=== PATIENT | female | born 1965 | race Caucasian/White ===

== ENCOUNTER 2016-03-05 08:35 | Emergency (ER) | payer OTHER, BC ==
[2016-03-05] MEDS ORDERED: KETOROLAC 30 MG/ML VIAL (J1885) As Ordered ONE (09:30)
--- NOTE | 2016-03-05 10:55 | EDDOCDS ---
[facility] Name: Michaela Marin Age: 50 yrs Sex: Female : 1965 Arrival Date: 03/05/2016 Time: 08:35 Bed PD Private MD: No Pcp Diagnosis: Low back pain Presentation: 03/05 08:56 Presenting complaint: Patient states: chronic low back pain and bilateral hip pain bcj worse today than normal. states incontinent today. no loss of function. denies recent injury/fall. Adult Sepsis Screening: The patient does not have new or worsening altered mentation. Patient's respiratory rate is less than 22. Systolic blood pressure is greater than 100. Patient has a qSOFA score of 0- Negative Sepsis Screen. Suicide/Homicide risk assessment- the patient denies having any suicidal and/or homicidal ideations and does not present with any other emotional, behavioral or mental health complaints. Status: Patient is not a director career services or dependent. Transition of care: patient was not received from another setting of care. 08:56 Acuity: JOSELYN Level 4 bcj 08:56 Method Of Arrival: Walkin/Carried/Asstd bcj Triage Assessment: 08:58 General: Appears in no apparent distress, comfortable, Behavior is cooperative. Pain: bcj Location: back Pain currently is 8 out of 10 on a pain scale. HIV screening NA for this visit Offered previously. 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 control pills daily - PMHx: Chronic Low Back Pain; - PSHx: Breast Augmentation; - Social history: Smoking status: Patient states was never smoker of tobacco. No barriers to communication noted, The patient speaks fluent Sami, Speaks appropriately for age. - Family history: Not pertinent. - : The pt / caregiver states he / she is not on anticoagulants. Home medication list is obtained from the patient. - Exposure Risk Screening:: None identified. Screenin:53 Screening information is obtained from the patient. Fall risk: No risks identified. bcj Assistance ADL's: requires no assistance with activities of daily living. Abuse/DV Screen: The patient / caregiver reports he/she is: not in a situation that causes fear, pain or injury. Nutritional screening: No deficits noted. Advance Directives: Currently, there is no health care proxy. home support is adequate. Assessment: 10:53 General: Appears in no apparent distress, comfortable, Behavior is cooperative. Pain: bcj Location: back Pain currently is 3 out of 10 on a pain scale. Derm: Skin is pink, warm & dry. Vital Signs: 08:37 BP 116 / 60; Pulse 72; Resp 16; Temp 97.8(O); Pulse Ox 100% ; Weight 60.78 kg; Height 5 cmb ft. 1 in. (154.94 cm); Pain 810; 08:37 Body Mass Index 25.32 (60.78 kg, 154.94 cm) cmb Vitals: 08:37 Log In Time: March 05, 2016 at 08:33. cmb ED Course: 08:36 Patient visited by Emi Posadas. cmb 08:36 Patient moved to Waiting cmb 08:37 No Pcp is Private Physician. cmb 08:38 Patient moved to Pre RCE cmb 08:57 Triage Initiated bcj 08:59 Patient visited by Олег Myers RN. bcj 09:00 Patient moved to Triage 1 bcj 09:01 Jignesh Scherer PA-C is PHCP. ar2 09:01 Ernestina Zayas MD is Attending Physician. ar2 09:01 Patient visited by Jignesh Scherer PA-C. ar2 09:38 Patient moved to PD bcj 10:31 Олег Weber is Referral Physician. ar2 10:31 [facility] is Referral Physician. ar2 10:31 Cathy Elizabeth MD is Referral Physician. ar2 10:43 [facility] Payment Agreement was scanned into [employer] and attached to record. lg 10:53 No apparent distress. Resting quietly. Awaiting disposition. bcj 10:53 The patient / caregiver is instructed regarding the plan of care and ED course. bcj 10:53 No IV's were initiated during this patient's visit. No procedures done that require bcj assistance. 10:55 Patient visited by Олег Myers RN. bcj Administered Medications: 09:40 Drug: ketorolac 60 mg [ketorolac 30 mg/mL (1 mL) injection solution (2 mL)] Route: IM; bcj Site: right gluteus; Order Results: Lab Order: UA; SPEC'M 03/05/16 09:41 Test: APPEARANCE, URINE; Value: CLEAR; Range: CLEAR; Status: F Test: COLOR, URINE; Value: YELLOW; Range: YELLOW; Status: F Test: PH,URINE; Value: 5.0; Range: 5.0-9.0; Units: UNITS; Status: F Test: SPECIFIC GRAVITY URINE AUTO; Value: 1.014; Range: 1.002-1.035; Status: F Test: PROTEIN, URINE AUTO; Value: NEGATIVE; Range: NEGATIVE; Units: mg/dL; Status: F Test: GLUCOSE, URINE (UA) AUTO; Value: NEGATIVE; Range: NEGATIVE; Units: mg/dL; Status: F Test: KETONE, URINE AUTO; Value: NEGATIVE; Range: NEGATIVE; Units: mg/dL; Status: F Test: UROBILINOGEN, URINE AUTO; Value: 0.2; Range: 0.0-2.0; Units: mg/dL; Status: F Test: BILIRUBIN, URINE AUTO; Value: NEGATIVE; Range: NEGATIVE; Status: F Test: NITRITE, URINE AUTO; Value: NEGATIVE; Range: NEGATIVE; Status: F Test: LEUKOCYTE ESTERASE, URINE AUTO; Value: NEGATIVE; Range: NEGATIVE; Status: F Test: BLOOD, URINE BLOOD; Value: 2+; Range: NEGATIVE; Abnormal: Above high normal; Status: F Test: WBC, URINE AUTO; Value: 6; Range: 0-3; Abnormal: Above high normal; Units: /HPF; Status: F Test: RBC, URINE AUTO; Value: 3; Range: 0-3; Units: /HPF; Status: F Test: BACTERIA, URINE AUTO; Value: NEGATIVE; Range: NEGATIVE; Status: F Test: SQUAMOUS EPITHELIAL CELL UR AU; Value: 1; Range: 0-6; Units: /HPF; Status: F Test: MUCUS, URINE; Value: SMALL; Range: NEGATIVE; Status: F Test: HYALINE CAST, URINE AUTO; Value: 0; Range: 0-1; Units: /LPF; Status: F Outcome: 10:31 Discharge ordered by Provider. ar2 10:53 Discharge Assessment: patient administered narcotics - no. The following High Risk bcj Discharge criteria are identified: None. Discharged to home ambulatory. Condition: stable. Discharge instructions given to patient, Instructed on discharge instructions, follow up and referral plans. medication usage, Prescriptions given X 3. No special radiology studies were completed. Property :Personal belongings accompany Pt. 10:55 Patient left the ED. wendy Signatures: Олег Myers RN RN Munira Logan Reg Reg lg Robertshaw, Aaron, TONI PADa arEmi Pinedo MTDD
--- NOTE | 2016-03-05 10:55 | EDDOCDS ---
Physician Documentation [facility] Name: Michaela Marin Age: 50 yrs Sex: Female : 1965 Arrival Date: 03/05/2016 Time: 08:35 Bed PD Private MD: No Pcp Disposition: 03/05/16 10:31 Discharged to Home/Self Care. Impression: Low back pain. - Condition is Stable. - Discharge Instructions: Back Pain, Adult, Chronic Back Pain, Sacroiliac Joint Dysfunction. - Prescriptions for Naprosyn 500 mg Oral Tablet - take 1 tablet by ORAL route 2 times per day take with food; 30 tablet. Robaxin 500 mg Oral Tablet - take 2 tablets by ORAL route At bedtime As needed; 20 tablet. Prednisone 20 mg Oral Tablet - take 2 tablet by ORAL route once daily for 5 days; 10 tablet. - Medication Reconciliation, Local Pharmacy Hours form. - Follow up: Олег Weber; When: Call to arrange an appointment; Reason: Recheck today's complaints, Continuance of care. Follow up: [facility] ; When: Call to arrange an appointment; Reason: To establish care. Follow up: Cathy Elizabeth; When: As needed; Reason: To establish care. - Problem is new. - Symptoms have improved. - Notes: start naproxen after completing the prednisone Historical: - Allergies: no known allergies; - Home Meds: 1. control pills daily - PMHx: Chronic Low Back Pain; - PSHx: Breast Augmentation; - Social history: Smoking status: Patient states was never smoker of tobacco. No barriers to communication noted, The patient speaks fluent Venezuelan, Speaks appropriately for age. - Family history: Not pertinent. - : The pt / caregiver states he / she is not on anticoagulants. Home medication list is obtained from the patient. - Exposure Risk Screening:: None identified. 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 1 in. (154.94 cm); Pain 8/10; 08:37 Body Mass Index 25.32 (60.78 kg, 154.94 cm) cmb MDM: 09:10 UA Ordered. EDMS 09:10 Urine Culture Ordered. EDMS 09:19 Financial registration complete. lg 09:20 ketorolac 60 mg IM once ordered. ar2 10:10 UA Reviewed. ar2 10:43 [facility] Payment Agreement was scanned into [employer] and attached to record. lg Administered Medications: 09:40 Drug: ketorolac 60 mg [ketorolac 30 mg/mL (1 mL) injection solution (2 mL)] Route: IM; [facility] Site: right gluteus; Signatures: Dispatcher [employer] EDОлег Jose RN RN bcMunira Grimm, Reg Reg lg Jignesh Scherer, TONI PADa ar2 The chart was reviewed and I authenticate all verbal orders and agree with the evaluation and treatment provided.Attachments: 10:43 [facility] Payment Agreement lg MTDD
--- NOTE | 2016-03-07 11:55 | EDDOCDS ---
Physician Documentation [facility] Name: Michaela Marin Age: 50 yrs Sex: Female : 1965 Arrival Date: 03/05/2016 Time: 08:35 Bed PD Private MD: No Pcp Disposition: 03/05/16 10:31 Discharged to Home/Self Care. Impression: Low back pain. - Condition is Stable. - Discharge Instructions: Back Pain, Adult, Chronic Back Pain, Sacroiliac Joint Dysfunction. - Prescriptions for Naprosyn 500 mg Oral Tablet - take 1 tablet by ORAL route 2 times per day take with food; 30 tablet. Robaxin 500 mg Oral Tablet - take 2 tablets by ORAL route At bedtime As needed; 20 tablet. Prednisone 20 mg Oral Tablet - take 2 tablet by ORAL route once daily for 5 days; 10 tablet. - Medication Reconciliation, Local Pharmacy Hours form. - Follow up: Олег Weber; When: Call to arrange an appointment; Reason: Recheck today's complaints, Continuance of care. Follow up: [facility] ; When: Call to arrange an appointment; Reason: To establish care. Follow up: Cathy Elizabeth; When: As needed; Reason: To establish care. - Problem is new. - Symptoms have improved. - Notes: start naproxen after completing the prednisone Historical: - Allergies: no known allergies; - Home Meds: 1. control pills daily - PMHx: Chronic Low Back Pain; - PSHx: Breast Augmentation; - Social history: Smoking status: Patient states was never smoker of tobacco. No barriers to communication noted, The patient speaks fluent Togolese, Speaks appropriately for age. - Family history: Not pertinent. - : The pt / caregiver states he / she is not on anticoagulants. Home medication list is obtained from the patient. - Exposure Risk Screening:: None identified. 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 1 in. (154.94 cm); Pain 8/10; 08:37 Body Mass Index 25.32 (60.78 kg, 154.94 cm) cmb MDM: 09:10 UA Ordered. EDMS 09:10 Urine Culture Ordered. EDMS 09:19 Financial registration complete. lg 09:20 ketorolac 60 mg IM once ordered. ar2 10:10 UA Reviewed. ar2 10:43 [facility] Payment Agreement was scanned into [employer] and attached to record. lg 12:34 T-Sheet-- Draft Copy was scanned into [employer] and attached to record. gb Administered Medications: 09:40 Drug: ketorolac 60 mg [ketorolac 30 mg/mL (1 mL) injection solution (2 mL)] Route: IM; bcj Site: right gluteus; Signatures: Dispatcher [employer] EDMS Олег Myers RN RN bcDoretha Pfeiffer, Reg Reg gb Munira Haque, Reg Reg Jignesh Velasquez, PADa PADa ar2 The chart was reviewed and I authenticate all verbal orders and agree with the evaluation and treatment provided.Attachments: 10:43 [facility] Payment Agreement lg 12:34 T-Sheet-- Draft Copy gb Chart Complete MTDD
--- NOTE | 2016-03-07 11:55 | EDDOCDS ---
Physician Documentation [facility] Name: Michaela Marin Age: 50 yrs Sex: Female : 1965 Arrival Date: 03/05/2016 Time: 08:35 Bed PD Private MD: No Pcp Disposition: 03/05/16 10:31 Discharged to Home/Self Care. Impression: Low back pain. - Condition is Stable. - Discharge Instructions: Back Pain, Adult, Chronic Back Pain, Sacroiliac Joint Dysfunction. - Prescriptions for Naprosyn 500 mg Oral Tablet - take 1 tablet by ORAL route 2 times per day take with food; 30 tablet. Robaxin 500 mg Oral Tablet - take 2 tablets by ORAL route At bedtime As needed; 20 tablet. Prednisone 20 mg Oral Tablet - take 2 tablet by ORAL route once daily for 5 days; 10 tablet. - Medication Reconciliation, Local Pharmacy Hours form. - Follow up: Олег Weber; When: Call to arrange an appointment; Reason: Recheck today's complaints, Continuance of care. Follow up: [facility] ; When: Call to arrange an appointment; Reason: To establish care. Follow up: Cathy Elizabeth; When: As needed; Reason: To establish care. - Problem is new. - Symptoms have improved. - Notes: start naproxen after completing the prednisone Historical: - Allergies: no known allergies; - Home Meds: 1. control pills daily - PMHx: Chronic Low Back Pain; - PSHx: Breast Augmentation; - Social history: Smoking status: Patient states was never smoker of tobacco. No barriers to communication noted, The patient speaks fluent Micronesian, Speaks appropriately for age. - Family history: Not pertinent. - : The pt / caregiver states he / she is not on anticoagulants. Home medication list is obtained from the patient. - Exposure Risk Screening:: None identified. RN INTERN: 03/05 08:58 LMP 02/10/2016 [facility] Vital Signs: 08:37 BP 116 / 60; Pulse 72; Resp 16; Temp 97.8(O); Pulse Ox 100% ; Weight 60.78 kg / 134 cmb lbs; Height 5 ft. 1 in. (154.94 cm); Pain 8/10; 08:37 Body Mass Index 25.32 (60.78 kg, 154.94 cm) cmb MDM: 09:10 UA Ordered. EDMS 09:10 Urine Culture Ordered. EDMS 09:19 Financial registration complete. lg 09:20 ketorolac 60 mg IM once ordered. ar2 10:10 UA Reviewed. ar2 10:43 [facility] Payment Agreement was scanned into [employer] and attached to record. lg 12:34 T-Sheet-- Draft Copy was scanned into [employer] and attached to record. gb Administered Medications: 09:40 Drug: ketorolac 60 mg [ketorolac 30 mg/mL (1 mL) injection solution (2 mL)] Route: IM; bcj Site: right gluteus; Signatures: Dispatcher [employer] EDMS Олег Myers RN RN bcDoretha Pfeiffer, Reg Reg gb Munira Haque, Reg Reg Jignesh Velasquez, PADa PADa ar2 The chart was reviewed and I authenticate all verbal orders and agree with the evaluation and treatment provided.Attachments: 10:43 [facility] Payment Agreement lg 12:34 T-Sheet-- Draft Copy gb Chart Complete MTDD
--- NOTE | 2016-03-07 11:55 | EDDOCDS ---
Nurse's Notes [facility] Name: Michaela Marin Age: 50 yrs Sex: Female : 1965 Arrival Date: 03/05/2016 Time: 08:35 Bed PD Private MD: No Pcp Diagnosis: Low back pain Presentation: 03/05 08:56 Presenting complaint: Patient states: chronic low back pain and bilateral hip pain bcj worse today than normal. states incontinent today. no loss of function. denies recent injury/fall. Adult Sepsis Screening: The patient does not have new or worsening altered mentation. Patient's respiratory rate is less than 22. Systolic blood pressure is greater than 100. Patient has a qSOFA score of 0- Negative Sepsis Screen. Suicide/Homicide risk assessment- the patient denies having any suicidal and/or homicidal ideations and does not present with any other emotional, behavioral or mental health complaints. 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 Transition of care: patient was not received from another setting of care. 08:56 Acuity: JOSELYN Level 4 bcj 08:56 Method Of Arrival: Walkin/Carried/Asstd bcj Triage Assessment: 08:58 General: Appears in no apparent distress, comfortable, Behavior is cooperative. Pain: bcj Location: back Pain currently is 8 out of 10 on a pain scale. HIV screening NA for this visit Offered previously. 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 control pills daily - PMHx: Chronic Low Back Pain; - PSHx: Breast Augmentation; - Social history: Smoking status: Patient states was never smoker of tobacco. No barriers to communication noted, The patient speaks fluent Yakut, Speaks appropriately for age. - Family history: Not pertinent. - : The pt / caregiver states he / she is not on anticoagulants. Home medication list is obtained from the patient. - Exposure Risk Screening:: None identified. Screenin:53 Screening information is obtained from the patient. Fall risk: No risks identified. bcj Assistance ADL's: requires no assistance with activities of daily living. Abuse/DV Screen: The patient / caregiver reports he/she is: not in a situation that causes fear, pain or injury. Nutritional screening: No deficits noted. Advance Directives: Currently, there is no health care proxy. home support is adequate. Assessment: 10:53 General: Appears in no apparent distress, comfortable, Behavior is cooperative. Pain: bcj Location: back Pain currently is 3 out of 10 on a pain scale. Derm: Skin is pink, warm & dry. Vital Signs: 08:37 BP 116 / 60; Pulse 72; Resp 16; Temp 97.8(O); Pulse Ox 100% ; Weight 60.78 kg; Height 5 cmb ft. 1 in. (154.94 cm); Pain 810; 08:37 Body Mass Index 25.32 (60.78 kg, 154.94 cm) cmb Vitals: 08:37 Log In Time: March 05, 2016 at 08:33. cmb ED Course: 08:36 Patient visited by Emi Posadas. cmb 08:36 Patient moved to Waiting cmb 08:37 No Pcp is Private Physician. cmb 08:38 Patient moved to Pre RCE cmb 08:57 Triage Initiated bcj 08:59 Patient visited by Олег Myers RN. bcj 09:00 Patient moved to Triage 1 bcj 09:01 Jignesh Scherer PA-C is PHCP. ar2 09:01 Ernestina Zayas MD is Attending Physician. ar2 09:01 Patient visited by Jignesh Scherer PA-C. ar2 09:38 Patient moved to PD bcj 10:31 Олег Weber is Referral Physician. ar2 10:31 [facility] is Referral Physician. ar2 10:31 Cathy Elizabeth MD is Referral Physician. ar2 10:43 [facility] Payment Agreement was scanned into [employer] and attached to record. lg 10:53 No apparent distress. Resting quietly. Awaiting disposition. bcj 10:53 The patient / caregiver is instructed regarding the plan of care and ED course. bcj 10:53 No IV's were initiated during this patient's visit. No procedures done that require bcj assistance. 10:55 Patient visited by Олег Myers RN. bcj 12:34 T-Sheet-- Draft Copy was scanned into [employer] and attached to record. gb Administered Medications: 09:40 Drug: ketorolac 60 mg [ketorolac 30 mg/mL (1 mL) injection solution (2 mL)] Route: IM; bcj Site: right gluteus; Order Results: Lab Order: UA; SPEC'M 03/05/16 09:41 Test: APPEARANCE, URINE; Value: CLEAR; Range: CLEAR; Status: F Test: COLOR, URINE; Value: YELLOW; Range: YELLOW; Status: F Test: PH,URINE; Value: 5.0; Range: 5.0-9.0; Units: UNITS; Status: F Test: SPECIFIC GRAVITY URINE AUTO; Value: 1.014; Range: 1.002-1.035; Status: F Test: PROTEIN, URINE AUTO; Value: NEGATIVE; Range: NEGATIVE; Units: mg/dL; Status: F Test: GLUCOSE, URINE (UA) AUTO; Value: NEGATIVE; Range: NEGATIVE; Units: mg/dL; Status: F Test: KETONE, URINE AUTO; Value: NEGATIVE; Range: NEGATIVE; Units: mg/dL; Status: F Test: UROBILINOGEN, URINE AUTO; Value: 0.2; Range: 0.0-2.0; Units: mg/dL; Status: F Test: BILIRUBIN, URINE AUTO; Value: NEGATIVE; Range: NEGATIVE; Status: F Test: NITRITE, URINE AUTO; Value: NEGATIVE; Range: NEGATIVE; Status: F Test: LEUKOCYTE ESTERASE, URINE AUTO; Value: NEGATIVE; Range: NEGATIVE; Status: F Test: BLOOD, URINE BLOOD; Value: 2+; Range: NEGATIVE; Abnormal: Above high normal; Status: F Test: WBC, URINE AUTO; Value: 6; Range: 0-3; Abnormal: Above high normal; Units: /HPF; Status: F Test: RBC, URINE AUTO; Value: 3; Range: 0-3; Units: /HPF; Status: F Test: BACTERIA, URINE AUTO; Value: NEGATIVE; Range: NEGATIVE; Status: F Test: SQUAMOUS EPITHELIAL CELL UR AU; Value: 1; Range: 0-6; Units: /HPF; Status: F Test: MUCUS, URINE; Value: SMALL; Range: NEGATIVE; Status: F Test: HYALINE CAST, URINE AUTO; Value: 0; Range: 0-1; Units: /LPF; Status: F Lab Order: Urine Culture; SPEC'M 03/05/16 09:41 Test: URINE CULTURE; Value: URINE CULTURE RESULT NO GROWTH CLINICAL SIGNIFICANCE 1 ORGANISM; Status: F Outcome: 10:31 Discharge ordered by Provider. ar2 10:53 Discharge Assessment: patient administered narcotics - no. The following High Risk [facility] Discharge criteria are identified: None. Discharged to home ambulatory. Condition: stable. Discharge instructions given to patient, Instructed on discharge instructions, follow up and referral plans. medication usage, Prescriptions given X 3. No special radiology studies were completed. Property :Personal belongings accompany Pt. 10:55 Patient left the ED. [facility] Signatures: Олег Myers RN RN bcDoretha Pfeiffer, Reg Reg gb Munira Haque, Reg Reg lg Jignesh Scherer, TONI MUÑOZ ar2 Emi Posadas Chart Complete MTDKhadra
== END 2016-03-05 10:55 | disposition home or self-care (01) ==
LOC: M ED 08:35
DX: M54.30 Sciatica, unspecified side (principal); Z79.3 Long term (current) use of hormonal contraceptives
CPT/HCPCS: 81001; 87086; 96372; 99283; J1885

== ENCOUNTER → 2016-04-01 | Outpatient (CLI) | payer OTHER ==
--- NOTE | 2016-04-01 14:12 | REP ---
LUMBAR SPINE COMPLETE, 04/01/2016 CLINICAL HISTORY: Degenerative disc disease, back pain. COMPARISON: MRI 03/08/2009. FINDINGS: Five views were provided. The normal lordosis is slightly reduced. There is disc space narrowing at the L1-2 and L2-3 as well as L5-S1. No compression deformity of destructive lesion. Anterior osteophytes throughout. There is no spondylolysis. I see no significant spondylolisthesis. Hypertrophic facet changes minimally at L4-5 and L5-S1. Sacral ala, foramina and SI joints unremarkable. Lower thoracic vertebral levels and visualized ribs intact. IMPRESSION: 1. Multilevel degenerative disc changes with marginal osteophytes as described and disc space narrowing at L1-2, L2-3 and L5-S1. No compression deformity, spondylolysis or spondylolisthesis.
== END ==
LOC: M CLY 09:38
PROVIDERS: ATTEND Family Medicine
DX: M51.36 Other intervertebral disc degeneration, lumbar region (principal)

== ENCOUNTER → 2016-04-29 | Outpatient (CLI) | payer BC ==
--- NOTE | 2016-04-29 15:55 | REPMRS ---
Patient History The patient states she had a clinical breast exam in 04/2016. Patient is nulliparous. No known family history of cancer. Retro-pectoral saline implants in both breasts, 2009. Taking hormonal contraceptives for 28 years. Digital Woman Screen Mammo: April 29, 2016 - Exam #: [id number] Bilateral CC and MLO view(s) were taken. Technologist: Jade Sibley, Technologist Prior study comparison: October 19, 2012, bilateral bilat screen digital mammo, performed at [facility] ([facility]). August 06, 2010, bilateral screening mammogram, performed at [facility] ([facility]). FINDINGS: There are scattered fibroglandular densities. The visualized implant margins are smooth. Breast parenchymal density pattern is essentially symmetric. No dominant mass, clustered microcalcification, or archetectural distortion is evident on either side. No significant changes when compared with prior studies. ASSESSMENT: BI-RADS/ACR category 2 mammogram. Benign finding(s). Recommendation Routine screening mammogram of both breasts in 1 year (for women over age 40). Electronically Signed By: Stevie Blanchard MD 04/29/16 [id number]
== END ==
LOC: M WHC 14:20
PROVIDERS: ATTEND Physician Assistant
DX: Z12.31 Encounter for screening mammogram for malignant neoplasm of breast (principal)

== ENCOUNTER → 2016-10-08 | Outpatient (CLI) | payer BC ==
[2016-10-08 12:48] LABS: MEAN CORPUSCULAR HEMOGLOBIN 33.4 pg (27.0-33.0); MEAN CORPUSCULAR HGB CONC 34.7 g/dl (32.0-36.5); MEAN CORPUSCULAR VOLUME 96.1 fl (80.0-96.0); RED CELL DISTRIBUTION WIDTH 11.9 % (11.5-14.5); WHITE BLOOD COUNT 9.8 K/mm3 (4.0-10.0)
[2016-10-08 13:10] LABS: ERYTHROCYTE SEDIMENTATION RATE 14 mm/hr (0-20)
[2016-10-08 14:35] LABS: BANDS 1 % (< 11); EOSINOPHILS 1 % (0-5)
[2016-10-08 14:36] LABS: ANISOCYTOSIS 1+
[2016-10-08 14:49] LABS: ALBUMIN 3.8 GM/DL (3.2-5.2); ALBUMIN/GLOBULIN RATIO 1.06 (1.00-1.93); ALKALINE PHOSPHATASE 53 U/L (45-117); ALT/SGPT 25 U/L (12-78); ANION GAP 8 MEQ/L (8-16); AST/SGOT 8 U/L (15-37); BILIRUBIN,TOTAL 0.8 MG/DL (0.2-1.0); BLOOD UREA NITROGEN 14 MG/DL (7-18); CALCIUM LEVEL 8.3 MG/DL (8.5-10.1); CARBON DIOXIDE LEVEL 25 MEQ/L (21-32); CHLORIDE LEVEL 106 MEQ/L (98-107); CREATININE FOR GFR 0.71 MG/DL (0.55-1.02); FREE T4 0.88 NG/DL (0.76-1.46); GLOMERULAR FILTRATION RATE > 60.0 (>58); GLUCOSE, FASTING 74 MG/DL (70-105); POTASSIUM SERUM 4.4 MEQ/L (3.5-5.1); SODIUM LEVEL 139 MEQ/L (136-145); TOTAL PROTEIN 7.4 GM/DL (6.4-8.2)
== END ==
LOC: M WUC 10:19
PROVIDERS: ATTEND Physician Assistant
DX: R42 Dizziness and giddiness (principal); M79.1 Myalgia

== ENCOUNTER 2017-03-04 20:17 | Emergency (ER) | payer OTHER, BC ==
[2017-03-04] MEDS: CYCLOBENZAPRINE 10 MG TAB PO (22:26)
[2017-03-04] MEDS: KETOROLAC 60 MG/2 ML VIAL (J1885) IM (22:27)
== END 2017-03-04 22:43 | disposition home or self-care (01) ==
LOC: M ED 20:17
DX: S39.012A Strain of muscle, fascia and tendon of lower back, initial encounter (principal); X58.XXXA Exposure to other specified factors, initial encounter; Y92.099 Unspecified place in other non-institutional residence as the place of occurrence of the external cause
CPT/HCPCS: J1885

== ENCOUNTER 2018-08-28 10:51 | Outpatient (RCR) | payer OTHER ==
[~2018-08-28 10:51] MED LIST: CYCL10TA PO; NAPR-837 PO; birth control
== END 2018-08-30 ==
LOC: M PT 10:51
PROVIDERS: ATTEND Orthopaedic Surgery
DX: M54.5 Low back pain (principal); M53.3 Sacrococcygeal disorders, not elsewhere classified

== ENCOUNTER 2018-09-25 11:00 | Outpatient (RCR) | payer OTHER | END 2018-09-30 | LOC: M PT 11:00 | PROVIDERS: ATTEND Orthopaedic Surgery | DX: Z47.89 Encounter for other orthopedic aftercare (principal); M54.5 Low back pain; M53.3 Sacrococcygeal disorders, not elsewhere classified ==

== ENCOUNTER 2018-10-16 10:01 | Outpatient (RCR) | payer OTHER | END 2018-10-31 | LOC: M PT 10:01 | PROVIDERS: ATTEND Orthopaedic Surgery | DX: Z47.89 Encounter for other orthopedic aftercare (principal); Z98.890 Other specified postprocedural states; Z98.1 Arthrodesis status; M54.5 Low back pain; M53.3 Sacrococcygeal disorders, not elsewhere classified ==

== ENCOUNTER 2018-11-27 10:06 | Outpatient (RCR) | payer OTHER | END 2018-11-30 | LOC: M PT 10:06 | PROVIDERS: ATTEND Orthopaedic Surgery | DX: Z47.89 Encounter for other orthopedic aftercare (principal); Z98.1 Arthrodesis status; M51.26 Other intervertebral disc displacement, lumbar region; M53.3 Sacrococcygeal disorders, not elsewhere classified ==

== ENCOUNTER 2018-12-30 08:15 | Outpatient (RCR) | payer OTHER | END 2018-12-31 | LOC: M PT 08:15 | PROVIDERS: ATTEND Orthopaedic Surgery | DX: Z47.89 Encounter for other orthopedic aftercare (principal); M54.5 Low back pain; M51.26 Other intervertebral disc displacement, lumbar region; M53.3 Sacrococcygeal disorders, not elsewhere classified ==

== ENCOUNTER 2019-01-08 13:39 | Outpatient (RCR) | payer OTHER | END 2019-01-30 | LOC: M PT 13:39 | PROVIDERS: ATTEND Orthopaedic Surgery | DX: Z47.89 Encounter for other orthopedic aftercare (principal); M54.5 Low back pain; M51.26 Other intervertebral disc displacement, lumbar region; M53.3 Sacrococcygeal disorders, not elsewhere classified ==